=== PATIENT | female | born 1935 | race Caucasian/White ===

== ENCOUNTER → 2018-04-17 12:43 | Outpatient (CLI) | payer MEDICARE, SELFPAY | PROVIDERS: Visit Provider Internal Medicine Rheumatology | DX: M06.4 Inflammatory polyarthropathy (principal); Z79.899 Other long term (current) drug therapy; M15.9 Polyosteoarthritis, unspecified; M18.12 Unilateral primary osteoarthritis of first carpometacarpal joint, left hand; I10 Essential (primary) hypertension; E78.5 Hyperlipidemia, unspecified; Z95.4 Presence of other heart-valve replacement | CPT/HCPCS: 73030 ==